=== PATIENT | female | born 1995 | race Caucasian/White ===

== ENCOUNTER 2020-07-21 07:58 | Outpatient (REF) | payer BC, SELFPAY ==
[2020-07-21 11:34] LABS: Estimated Average Glucose 103 mg/dL; Hemoglobin A1c % 5.2 %
== END 2020-07-21 07:59 | disposition home or self-care (01) ==
LOC: HO.MANLDS 07:58
PROVIDERS: PCP Physician Assistant; Visit Provider Physician Assistant
DX: R73.01 Impaired fasting glucose (principal)
CPT/HCPCS: 83036

== ENCOUNTER 2023-04-04 09:57 | Outpatient (REF) | payer OTHER, SELFPAY ==
[2023-04-04 15:33] LABS: HCG Quantitative < 2 mIU/mL
[2023-04-06 06:38] LABS: Follicle Stimulating Hormone 10.4 mIU/mL; Lutenizing Hormone 17.2 mIU/mL; Prolactin 6.4 ng/mL
[2023-04-09 21:34] LABS: Progesterone <0.1 ng/mL
[2023-04-09 23:48] LABS: Estradiol Ultra Sensitive 27 pg/mL
== END 2023-04-04 09:58 | disposition home or self-care (01) ==
LOC: HO.MANLDS 09:57
PROVIDERS: Visit Provider Internal Medicine
DX: N91.2 Amenorrhea, unspecified (principal)
CPT/HCPCS: 36415; 82670; 83001; 83002; 84144; 84146; 84443; 84702

== ENCOUNTER 2023-11-08 08:47 | Outpatient (REF) | payer OTHER, SELFPAY ==
[2023-11-08 09:56] LABS: HCG Quantitative 318 mIU/mL
== END 2023-11-08 08:48 | disposition home or self-care (01) ==
LOC: HO.LAB 08:47
PROVIDERS: PCP Internal Medicine; Visit Provider Physician Assistant
DX: N91.2 Amenorrhea, unspecified (principal)
CPT/HCPCS: 36415; 84702